=== PATIENT | female | born 1985 | race Caucasian/White ===

== ENCOUNTER → 2021-03-08 | Outpatient (CLI) | payer BC ==
[~2021-03-08] MED LIST: AMOXIL SUS250 MG/5 M PO; DOCUSATE SODIU100 MG PO; HYDROCODON-ACE1 EAC4 PO; IBUPROFEN600 MG PO; PHENERGAN 25 MG25 M1 PO; PRENATABS FA T1 EACH PO; TYLENOL325 M1 PO; ZOLOFT50 MG PO
[2021-03-08 12:32] LABS: HEMOGLOBIN 10.5 gm/dl (12.3-15.3); RED BLOOD COUNT 3.58 M/UL (4.00-5.10)
== END ==
LOC: GENOP 11:17
PROVIDERS: Obstetrics & Gynecology
DX: Z53.8 Procedure and treatment not carried out for other reasons (principal)
CPT/HCPCS: 36415; 81001; 85025

== ENCOUNTER 2021-03-11 05:37 | Inpatient (IN) | payer BC, OTHER ==
[~2021-03-11] VITALS: Ht 160 cm; Wt 81.6 kg
[~2021-03-11 05:37] MED LIST changes: -DOCUSATE SODIU100 MG PO; -HYDROCODON-ACE1 EAC4 PO; -IBUPROFEN600 MG PO; -ZOLOFT50 MG PO
[2021-03-11] MEDS ORDERED: DOCUSATE SODIU100 MG PO (08:11)
[2021-03-11] MEDS ORDERED: HYDROCODON-ACE1 EAC4 PO (08:11)
[2021-03-11] MEDS ORDERED: IBUPROFEN600 MG PO (08:11)
[2021-03-12 03:28] LABS: HEMOGLOBIN 9.2 gm/dl (12.3-15.3)
[2021-03-12] MEDS ORDERED: ZOLOFT50 MG PO (11:38)
== END 2021-03-12 14:52 | disposition home or self-care (01) | DRG 787 ==
LOC: OB 05:37
PROVIDERS: ADMIT Obstetrics & Gynecology
PROC: 4A1HXCZ Monitoring of Products of Conception, Cardiac Rate, External Approach (ICD-10-PCS; 2021-03-11)
PROC: 10D00Z1 Extraction of Products of Conception, Low, Open Approach (ICD-10-PCS; principal; 2021-03-11 07:30)
DX: O34.211 Maternal care for low transverse scar from previous cesarean delivery (principal); D62 Acute posthemorrhagic anemia; O99.02 Anemia complicating childbirth; Z3A.39 39 weeks gestation of pregnancy; Z37.0 Single live birth; Z20.822 Contact with and (suspected) exposure to COVID-19; O99.344 Other mental disorders complicating childbirth; F32.9 Major depressive disorder, single episode, unspecified; O76 Abnormality in fetal heart rate and rhythm complicating labor and delivery
CPT/HCPCS: 36415; 81001; 82800; 85014; 85018; 85025; 90715; C9113; J0690; J1885; J2274; J2405; J2590; J3010; J7120